=== PATIENT | female | born 1930 | race Caucasian/White ===

== ENCOUNTER 2017-09-09 17:01 | Inpatient (IN) | payer MEDICARE ==
[~2017-09-09] VITALS: Ht 152.4 cm; Wt 66.4 kg
--- NOTE | ~2017-09-09 | OP ---
PATIENT NAME: ALEJANDRO DOAN MEDICAL RECORD: [id number] :[birth year] LOCATION:[facility] ADMISSION DATE:09/09/17 SURGEON: ALMA ROSA ARCHIBALD MD DATE OF OPERATION: 09/10/2017 ANESTHESIA: Dr. Barton, general endotracheal. SURGEON: Alma Rosa Archibald MD FLIGHT SECURITY SPECIALIST: None. PREOPERATIVE DIAGNOSIS: Left displaced comminuted distal radius and distal ulna fracture (ulnar styloid). POSTOPERATIVE DIAGNOSIS: Left displaced comminuted distal radius and distal ulna fracture (ulnar styloid). PROCEDURE PERFORMED: Closed reduction and external fixation of left closed wrist fracture as described above. ANTIBIOTICS: 1 gram Cefazolin. BLOOD LOSS: 3 cc. FINDINGS: See body of report. COMPLICATIONS: None. PATHOLOGY: None. IMPLANTS: [place] external fixation system for the wrist, 4 pin to jack couplings times, 2 clamps, 4 posts, 2 rods, and 4 pins. DRAINS: None. TOURNIQUET: None. POSTOP: Stable to the recovery room. COUNTS: Needle, sponge, and instrument counts were correct. INDICATION FOR PROCEDURE: Ms. Doan is an 87-year-old female who sustained a fall onto her left wrist. She also sustained injuries to her face/head and a nondisplaced C3 fracture treated with an [place] collar. She was indicated for closed reduction and external fixation due to the closed, comminuted and shortened unstable nature of her wrist fracture. She had sustained prior wrist fractures as well, on at least one other occasion, with a well healing nondisplaced radial styloid per Xrays yesterday. This acute fracture, occurring yesterday, was deemed be most amenable to closed reduction and external fixation. There were no articular segments to the new fracture and the metaphysis of the distal radius was severely comminuted, shortened, and displaced. The ulnar neck fracture was noted to be slightly angulated, but in good position. The patient was counseled as to the risks, benefits, alternatives, and complications of the procedure. I explained that I did not think a good adequate reduction would be able to be obtained and held with a closed reduction and splinting or closed reduction and OPERATIVE REPORT [id number] ALEJANDRO DOAN casting. She understood the indication for the procedure was to obtain a better alignment both in the AP and lateral planes and to hold the bones in place as they healed over the next few weeks. I have recommended follow up 2 weeks after surgery to reassess and determine whether reduction was maintained in adequate position in the ex-fix at the 2-week michael. I plan to leave the ex-fix in place for 4-6 weeks followed by removal at which time she will be instructed to begin a gentle range of motion HEP for 2 weeks followed by sterting PT/OT if XRays reveal adequate fracture healing at that time. The patient asked questions, these questions were answered as well as the questions of the family members present at the time. DESCRIPTION OF PROCEDURE: The patient was then taken to the operating room and placed supine on the operative table. General endotracheal anesthesia was provided by the anesthesia department. At this time, fluoroscopic imaging was brought in and the fracture was assessed. A reduction maneuver was performed and AP and lateral XRrays confirmed that adequate reduction would be amenable to external fixation. The left upper extremity was then elevated, prepped, and draped in the usual sterile fashion. The second metacarpal was palpated and a small incision was made through skin. Blunt dissection was made down to the metacarpal shaft and a pin was applied. Once in position, a guide was used to place the second pin at the appropriate distance for clamp placement. A small incision was made and then the pin was inserted through the guide using the initial pin as the guiding pin for placement of the second pin placed into the second metacarpal shaft. Attention was then drawn to the distal radial shaft. Two pins were applied using the same technique in the radial shaft. At this point, one clamp was applied to the pins in the second metacarpal as well as one to the 2 pins in the distal radial shaft. Posts were then applied to each of the clamps and then rods were applied to the pin to jack couplings that were attached to the pin sites. Once all the pin to jack couplings were in position, a reduction maneuver was performed and the external fixator was tightened to hold this reduction. AP and lateral imaging revealed an adequate reduction after several attempts. At this point, 2 jack-to-jack clamps and an additional supportive jack was placed between the rods placed radial and ulnar to the fracture site. The final construct was imaged and adequate reduction was maintained with stable external fixation noted. A 3-0 nylon suture was used to close the pin sites. Adaptic was then placed followed by Webril and a sterile dressing was applied with an Xavier wrap overwrapping this. The patient was awakened in stable condition and taken to recovery room. TRANSINT:[id number] Voice Confirmation ID: [id number] DOCUMENT ID: [id number] ALMA ROSA ARCHIBALD MD at 1721 CC: [id number] DICTATION DATE: 09/10/17 171 [employer] ENGINEER: 09/10/172025 DIS IN 09/11/17 [place] [id number] [place] [id number]
[2017-09-09 19:54] LABS: BASOPHILS 0.6 % (0-2); EOSINOPHILS 1.7 % (0-7); HEMATOCRIT 41.2 % (36.0-48.0); HEMOGLOBIN 13.5 g/dL (12-16); IMMATURE GRANULOCYTES 0.2 % (0-5); MCH 31.1 pg (26.0-34.0); MCHC 32.8 g/dL (31.0-37.0); MCV 94.9 fL (80.0-100.0); MEAN PLATELET VOLUME 10.3 fL (7.4-10.4); MONOCYTES 11.2 % (2-11); NEUTROPHILS 60.3 % (40-80); PLATELET COUNT 200 10x3/uL (130-400); RBC 4.34 10x6/uL (4.00-5.40); RDW 13.4 % (11.5-14.5); WBC 6.6 10x3/uL (4.8-10.8)
[2017-09-09 20:07] LABS: ALBUMIN 3.6 g/dL (3.4-5.0); ANION GAP 14.5 mmol/L (8-16); BILIRUBIN - TOTAL 0.61 mg/dL (0.2-1.3); CARBON DIOXIDE 27.4 mmol/L (21.0-32.0); POTASSIUM - SERUM 4.9 mmol/L (3.5-5.1); PROTEIN - SERUM 7.6 g/dL (6.4-8.2)
[2017-09-09 20:43] LABS: INR 0.98 (0.85-1.17); PROTIME 12.6 SECONDS (11.6-15.0)
[2017-09-09 20:44] LABS: APTT 23.7 SECONDS (22.8-39.4)
[2017-09-09 22:26] VITALS: BP 178/52; Ht 152.4 cm; Wt 66.4 kg
[2017-09-10] VITALS (11 sets, daily range): BP systolic 118–160; BP diastolic 46–87
[2017-09-10 05:01] LABS: APPEARANCE CLEAR (CLEAR); BILIRUBIN NEGATIVE (NEGATIVE); COLOR YELLOW (YELLOW); GLUCOSE NEGATIVE (NEGATIVE); KETONE SMALL mg/dL (NEGATIVE); NITRITE NEGATIVE (NEGATIVE); PROTEIN NEGATIVE (NEGATIVE); SPECIFIC GRAVITY 1.015 (1.005-1.020); UROBILINOGEN NORMAL (NORMAL)
[2017-09-10] MEDS ORDERED: LISINOPRIL10 MG PO (05:48)
[2017-09-10] MEDS ORDERED: ASPIRIN325 MG PO (05:48)
[2017-09-10] MEDS ORDERED: LOVASTATIN40 MG PO (05:49)
[2017-09-10] MEDS ORDERED: SALMON OIL PO (05:51)
[2017-09-10 11:42] LABS: BASOPHILS 0.2 % (0-2); EOSINOPHILS 0.8 % (0-7); HEMATOCRIT 39.7 % (36.0-48.0); IMMATURE GRANULOCYTES 0.2 % (0-5); LYMPHOCYTES 16.1 % (15-50); MCH 30.8 pg (26.0-34.0); MCHC 32.7 g/dL (31.0-37.0); MCV 94.1 fL (80.0-100.0); MONOCYTES 8.6 % (2-11); NEUTROPHILS 74.1 % (40-80); RBC 4.22 10x6/uL (4.00-5.40); RDW 13.4 % (11.5-14.5)
[2017-09-10 11:45] LABS: PLATELET COUNT 153 10x3/uL (130-400); WBC 9.5 10x3/uL (4.8-10.8)
[2017-09-10 12:01] LABS: ALBUMIN 3.3 g/dL (3.4-5.0); ANION GAP 12.4 mmol/L (8-16); BILIRUBIN - TOTAL 0.8 mg/dL (0.2-1.3); CALCIUM 8.8 mg/dL (8.5-10.1); CARBON DIOXIDE 27.6 mmol/L (21.0-32.0); PROTEIN - SERUM 6.8 g/dL (6.4-8.2)
[2017-09-11] VITALS: BP 131/53
[2017-09-11 04:05] VITALS: BP 150/57
[2017-09-11 07:01] LABS: BASOPHILS 0.2 % (0-2); EOSINOPHILS 0.6 % (0-7); HEMATOCRIT 36.1 % (36.0-48.0); HEMOGLOBIN 11.9 g/dL (12-16); IMMATURE GRANULOCYTES 0.2 % (0-5); LYMPHOCYTES 11.4 % (15-50); MEAN PLATELET VOLUME 9.1 fL (7.4-10.4); NEUTROPHILS 77.6 % (40-80); PLATELET COUNT 141 10x3/uL (130-400); RBC 3.84 10x6/uL (4.00-5.40); RDW 13.4 % (11.5-14.5); WBC 9.6 10x3/uL (4.8-10.8)
[2017-09-11 07:34] LABS: ALBUMIN 2.9 g/dL (3.4-5.0); ANION GAP 12.9 mmol/L (8-16); BILIRUBIN - TOTAL 0.82 mg/dL (0.2-1.3); CALCIUM 8.4 mg/dL (8.5-10.1); CARBON DIOXIDE 25.2 mmol/L (21.0-32.0); POTASSIUM - SERUM 4.1 mmol/L (3.5-5.1); PROTEIN - SERUM 6.3 g/dL (6.4-8.2)
[2017-09-11 09:18] VITALS: BP 129/58
[2017-09-11 12:09] VITALS: BP 129/55
[2017-09-11] MEDS ORDERED: HYDROCODON-ACE1 EAC7 PO (13:11)
== END 2017-09-11 17:04 | disposition home health service (06) | DRG 511 ==
LOC: D.ER 17:01 → D.SDCHOLD 19:11 → D.MS 20:56
PROVIDERS: Family Medicine; Orthopaedic Surgery Foot and Ankle Surgery; Physician Assistant Medical
PROC: 0PSL35Z Reposition Left Ulna with External Fixation Device, Percutaneous Approach (ICD-10-PCS; 2017-09-10)
PROC: 0PSJ35Z Reposition Left Radius with External Fixation Device, Percutaneous Approach (ICD-10-PCS; principal; 2017-09-10 11:00)
DX: S52.572A Other intraarticular fracture of lower end of left radius, initial encounter for closed fracture (principal); S42.445A Nondisplaced fracture (avulsion) of medial epicondyle of left humerus, initial encounter for closed fracture; S12.201A Unspecified nondisplaced fracture of third cervical vertebra, initial encounter for closed fracture; S52.602A Unspecified fracture of lower end of left ulna, initial encounter for closed fracture; W01.0XXA Fall on same level from slipping, tripping and stumbling without subsequent striking against object, initial encounter; E78.00 Pure hypercholesterolemia, unspecified; I10 Essential (primary) hypertension; S00.03XA Contusion of scalp, initial encounter

== ENCOUNTER → 2017-09-23 09:24 | Outpatient (CLI) | payer MEDICARE ==
[2017-09-09 22:26] VITALS: BMI 28.5
[~2017-09-23 09:24] MED LIST: ASPIRIN325 MG PO; HYDROCODON-ACE1 EAC7 PO; LISINOPRIL10 MG PO; LOVASTATIN40 MG PO; SALMON OIL PO
== END | disposition home or self-care (01) ==
LOC: D.US 09:24
DX: R22.42 Localized swelling, mass and lump, left lower limb (principal)

== ENCOUNTER 2017-10-14 08:06 | Day surgery (SDC) | payer MEDICARE ==
[2017-10-13 12:16] LABS: BASOPHILS 0.2 % (0-2); EOSINOPHILS 1.3 % (0-7); HEMATOCRIT 37.1 % (36.0-48.0); HEMOGLOBIN 12.2 g/dL (12-16); IMMATURE GRANULOCYTES 0.2 % (0-5); LYMPHOCYTES 17.1 % (15-50); MCH 30.2 pg (26.0-34.0); MCHC 32.9 g/dL (31.0-37.0); MCV 91.8 fL (80.0-100.0); MEAN PLATELET VOLUME 9.3 fL (7.4-10.4); MONOCYTES 10.1 % (2-11); NEUTROPHILS 71.1 % (40-80); RBC 4.04 10x6/uL (4.00-5.40); RDW 12.9 % (11.5-14.5); WBC 9.4 10x3/uL (4.8-10.8)
[2017-10-13 12:21] LABS: ANION GAP 11.9 mmol/L (8-16); CALCIUM 9.2 mg/dL (8.5-10.1); CREATININE - SERUM 1.2 mg/dL (0.6-1.3); POTASSIUM - SERUM 3.9 mmol/L (3.5-5.1)
[2017-10-13 12:22] LABS: PLATELET COUNT 210 10x3/uL (130-400)
[~2017-10-14] VITALS: Ht 157.5 cm; Wt 65.8 kg
--- NOTE | ~2017-10-14 | OP ---
PATIENT NAME: ALEJANDRO DOAN MEDICAL RECORD: [id number] :[birth year] [facility] DATE: SURGEON: ALMA ROSA ARCHIBALD MD DATE OF OPERATION: 10/14/2017 ANESTHESIA: Babatunde Dubon MD SURGEON: Alma Rosa Archibald MD [employer]: None. PREOPERATIVE DIAGNOSIS: Left wrist fracture, status post external fixation. POSTOPERATIVE DIAGNOSIS: Left wrist fracture, status post external fixation now status post removal of ex-fix and short arm casting. PROCEDURE PERFORMED: Removal of external fixer planned procedure and application of short-arm cast, left wrist. ANTIBIOTIC: 1 gram Ancef. ESTIMATED BLOOD LOSS: Minimal. FINDINGS: See body of report. COMPLICATIONS: None. PATHOLOGY: None. IMPLANTS: The external fixator was removed from the left wrist. DRAINS: None. TOURNIQUET: None. POSTOP: Stable to the recovery room. COUNTS: Needle, sponge, and instrument counts were correct. INDICATIONS FOR THE PROCEDURE: The patient was brought back to the operating room for planned removal of an external fixator and short arm casting following prior external fixation and closed reduction of a closed distal radius fracture. It was discussed with the patient prior to the initial procedure (Ex-FIX) the ex-fix would be placed temporarily until provisional fracture healing had occurred at which time it would be removed and a short-arm cast would then be applied. The patient was consented when it came time to remove the external fixator. Risks, benefits, alternatives, and complications were discussed. Questions were answered and she agreed to proceed with surgery and signed informed consent was placed in the chart. PROCEDURE IN DETAIL: The patient was brought to the operating room and placed supine on the operative table where monitored sedation was provided by the anesthesia department. At this time, the left upper extremity was elevated, prepped and draped in the usual sterile fashion. The external fixator was prepped as well. Following this, all bars and clamps were removed and then the OPERATIVE REPORT [id number] ALEJANDRO DOAN pins were removed. Pin sites were irrigated and a sterile dressing was applied with Adaptic, 4 x 4s and Webril. The Webril was then wrapped for a short-arm cast around the left hand, wrist and forearm up to just distal to the elbow and following this fiberglass was applied and the cast was molded to maintain fracture reduction. It was noted that swelling had resolved and I would not expect the cast to become loose over time at this point. Once this was done, the patient was awakened and in stable condition. She was brought to the recovery room and was discharged home from the recovery room once she cleared anesthesia. TRANSINT:[id number] Voice Confirmation ID: [id number] DOCUMENT ID: [id number] ALMA ROSA ARCHIBALD MD at 1019 CC: [id number] DICTATION DATE: 11/07/17 1521 DIRECTOR OF TEACHER EDUCATION: 11/07/17 1603 [facility] 10/14/17 [place] [id number] [place] [address]
[2017-10-14 08:51] VITALS: BP 131/70; Ht 157.5 cm; Wt 65.8 kg
== END 2017-10-14 14:10 | disposition home or self-care (01) ==
LOC: D.OPS 08:06 → D.PAN 09:30 → D.OPS 09:30 → D.PAN 10:15 → D.OPS 14:10
PROVIDERS: Anesthesiology
DX: S52.512D Displaced fracture of left radial styloid process, subsequent encounter for closed fracture with routine healing (principal); X58.XXXA Exposure to other specified factors, initial encounter; M25.532 Pain in left wrist; I10 Essential (primary) hypertension; Z01.812 Encounter for preprocedural laboratory examination